=== PATIENT | female | born 1980 | race Caucasian/White ===

== ENCOUNTER 2018-03-27 19:05 | Emergency (ER) | payer OTHER ==
[2018-03-27] MEDS ORDERED: Triamcinolone Acetonide 40 MG/ML 1 ML MDV INJECT ONE (19:30)
--- NOTE | 2018-03-27 19:36 | EDM.PDOC ---
ED HPI GENERAL MEDICAL PROBLEM - General Chief Complaint: Skin Complaint Stated Complaint: RASH Time Seen by Provider: 03/27/18 19:31 Source of Information: Reports: Patient History Limitations: Reports: No Limitations - History of Present Illness INITIAL COMMENTS - FREE TEXT/NARRATIVE: pt has 2 areas of a rash. Her left arm has vesicles and is going up her arm. This looks vwery much like poison [place]. She states this itches alot. She has another rash on her abdoman whish does not have vesicles and is not a typical poison [place] rash. Onset: Today, Other ( The one on the abdoman started today but the one on her arm has been there for several days. She has been handling a puppy that has been rolling in the grass. 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: - Past Surgical History GI Surgical History: Reports: Hernia Repair/Other Female Surgical History: Reports: Section Social & Family History - Tobacco Use Smoking Status *Q: Never Smoker - Caffeine Use Caffeine Use: Reports: Coffee - Recreational Drug Use Recreational Drug Use: No ED ROS GENERAL - Review of Systems Review Of Systems: See Below Constitutional: Reports: No Symptoms HEENT: Reports: No Symptoms Respiratory: Reports: No Symptoms Cardiovascular: Reports: No Symptoms Endocrine: Reports: No Symptoms GI/Abdominal: Reports: No Symptoms, Other (pt has a rash on her abdoman which looks hemmoragic and more like a bite. ) : Reports: No Symptoms Musculoskeletal: Reports: No Symptoms Skin: Reports: Rash Neurological: Reports: No Symptoms ED EXAM, SKIN/RASH Exam: See Below Text/Narrative:: rash on the abdoman and on the left arm. Exam Limited By: No Limitations General Appearance: Alert, Anxious Ears: Normal TMs Nose: Normal Inspection Throat/Mouth: Normal Inspection Head: Atraumatic Neck: Normal Inspection Respiratory/Chest: No Respiratory Distress Cardiovascular: Regular Rate, Rhythm GI/Abdominal: Soft, Non-Tender (Female) Exam: Deferred Rectal (Female) Exam: Deferred Back Exam: Normal Inspection Extremities: Normal Inspection Neurological: Alert, Oriented, Normal Cognition Psychiatric: Normal Affect Skin: Rash, Other (pt has a vesicular rash on the inner aspect of the left arm. She states it is very itchy. She developed a rash on the abdoman which was very hemmoragic looking and did not look vesicular. This did look more like a bug bite. ) Location, Skin: Abdomen, Upper Extremity, Left Characteristics: Vesicular, Other ( The rash on the left arm is vesicular. ) Course - Vital Signs Last Recorded V/S: Last Vital Signs Temp 36.6 C 03/27/18 19:23 Pulse 74 03/27/18 19:23 Resp 13 03/27/18 19:23 BP 111/69 03/27/18 19:23 Pulse Ox 100 03/27/18 19:23 - Orders/Labs/Meds Meds: Medications Discontinued Medications Generic Name Dose Route Start Last Admin Trade Name Tommieq PRN Reason Stop Dose Admin Triamcinolone Acetonide 60 mg 03/27/18 19:30 03/27/18 19:36 Kenalog-40 INJECT 03/27/18 19:31 60 mg ASDIRECTED ONE Administration - Re-Assessments/Exams Free Text/Narrative Re-Assessment/Exam: 03/27/18 19:44 Pt was given kenalog 60mg im Departure - Departure Time of Disposition: 19:37 Disposition: Home, Self-Care 01 Condition: Fair Clinical Impression: Poison [place], Insect bite - Discharge Information Instructions: Poison [place] Dermatitis, [id number], Insect Bite, Adult, Easy-to- Read Referrals: PCP,None [Primary Care Provider] - Forms: ED Department Discharge Care Plan Goals: Pt was given kenalog 60mg im. She will use benmadryl 50mg q6h, kenalog cream .1 % apply to the rash tid,
== END 2018-03-27 19:43 | disposition home or self-care (01) ==
LOC: JP.ED 19:05
DX: S30.861A Insect bite (nonvenomous) of abdominal wall, initial encounter (principal); L23.7 Allergic contact dermatitis due to plants, except food; W57.XXXA Bitten or stung by nonvenomous insect and other nonvenomous arthropods, initial encounter; Z79.899 Other long term (current) drug therapy
CPT/HCPCS: 96372; 99283; J3301